=== PATIENT | female | born 1955 | race Caucasian/White ===

== ENCOUNTER 2021-04-26 16:40 | Outpatient (CLI) | payer OTHER, SELFPAY ==
--- NOTE | 2021-04-26 16:47 | RAD_ITS ---
STUDY: X-RAY CHEST REASON FOR EXAM: Female, 65 years old. Back pain, abnormal bone scan TECHNIQUE: PA and lateral views of the chest. COMPARISON: None. FINDINGS: The lungs are clear and expanded. There is no demonstrated pleural abnormality. Normal size heart. Normal mediastinum and tabby. Normal visualized pulmonary arteries. Normal visualized aortic arch and descending thoracic aorta. There are diffuse degenerative changes of the visualized thoracic spine. Normal visualized ribs, clavicles, and shoulders. There is no demonstrated abnormality of the visualized soft tissue structures of the upper abdomen. RAD/Chest PA and Lateral IMPRESSION: No acute pulmonary process Electronically Signed: Stef Carter MD at 17:04 EST ,
== END 2021-04-26 23:59 | disposition short-term general hospital (02) ==
LOC: RAD 16:43
PROVIDERS: PCP Nurse Practitioner Primary Care; Referring Provider Specialist; Visit Provider Specialist
DX: R94.8 Abnormal results of function studies of other organs and systems (principal)
CPT/HCPCS: 71046

== ENCOUNTER 2024-10-14 11:30 | Outpatient (RCR) | payer MEDICARE, OTHER, SELFPAY ==
--- NOTE | 2024-09-16 12:11 | HP.PTEVAL ---
Patient's Visit Information Visit Information Visit Information: DAMI LOMAX is a 68 year old F referred to Physical Therapy by SUNIL Mcknight with a diagnosis of R calf pain/strain of R calf. Date of Evaluation: 09/16/24 Physical Therapist: Elena Howe MPT Visit Plan Frequency: 2x /Week Duration: 6 Months Plan: 2X/ week for 6 weeks for R gastroc and HS foam rolling, stretching of R HS and gastroc with some MT to the same. Then progress to gastroc and HS strengthening with HEP HEP: supine green strap HS, long sitting HS, and towel gastroc stretch Subjective Subjective: Pt start with a R calf pain in morning (more like a cramp) and towards evening it shoots up her leg into her buttock. She has no N&T. She has no calf pain with walking. It does bother her to push the gas pedel. She has no trouble on steps unless she does too many of them. She has no night pain while laying down or sleeping. Pain R calf pain: Pain Intensity (Out of 10): 3 R buttock pain: Pain Intensity (Out of 10): 3 Objective Objective: Gait: Walks with decrease stance time on the R LE Heel and toe raises: increase pain on the R with heel raises. Pt has decreased ability to toe raise B but worse on the R with some increase R calf pain LE MMT: R hip ext 4-/5 (pain) and L 4/5 R knee flex 6.5 and L 10.7 Palpation: tender over R ischial tuberosity and R lateral calf Tight R HS and gastroc worse on the R compared to the L Slant Board stretch... pt really felt the stretch on the R Stairs: pt had a little weakness ascending the steps on the R Balance/Special Test Scores Lower Extremity Functional Score: 77 Goals Goal 1:: I HEP Goal Time Frame: 6-8 Weeks Goal 2:: Increase R HS and R gastroc flexibility with no pain Goal Time Frame: 6-8 Weeks Goal 3:: Pt to be able to sit at night without having R buttock and calf pain Goal Time Frame: 6-8 Weeks Goal 4:: Increase R LE strength (at the time of the eval: R hip ext 4-/5 (pain) and L 4/5 R knee flex 6.5 and L 10.7) Goal Time Frame: 6-8 Weeks Rehabilitation Potential Rehabilitation Potential: Good Anticipated Interventions Patient/Client Instruction: Educate patient on: Condition and Plan of Care For the Purpose of:: To decrease pain, To increase ROM, To improve nutrient delivery to tissue, To improve muscle performance and motor function, To improve ability to perform ADL's, To increase tolerance to activity/condition/position, To improve performance and independence with ADL's, To decrease level of supervision to perform tasks, To improve ability of physical actions for home/community/work/leisure, To improve gait and locomotor functions, To improve health of tissue, To decrease soft tissue restriction and To increase flexibility/ROM Therapeutic Exercise to Include: Strength training, Flexibilty training, Gait and locomotor training, Neuromotor development, Passive ROM and Active ROM For the Purpose of:: To decrease pain, To decrease swelling/inflammation, To increase ROM, To improve nutrient delivery to tissue, To improve muscle performance and motor function, To improve ability to perform ADL's, To improve gait and locomotor functions, To improve health of tissue, To decrease soft tissue restriction and To increase flexibility/ROM Manual Therapy Techniques to Include: Passive ROM and Soft tissue mobilization For the Purpose of:: To decrease pain, To decrease swelling/inflammation, To increase ROM, To improve nutrient delivery to tissue, To improve muscle performance and motor function, To improve ability to perform ADL's, To increase tolerance to activity/condition/position, To improve health of tissue, To decrease soft tissue restriction and To increase flexibility/ROM Cryotherapy (ice pack, ice massage): Yes Thermo therapy (hot pack): Yes For the Purpose of:: To decrease pain, To decrease swelling/inflammation, To increase ROM and To improve nutrient delivery to tissue Text: Thank you for the opportunity to evaluate your patient. For Medicare and Medicare HMO plans, please review the plan of care and approve it. It will need to be FAXED BACK to us at [phone] for Medicare purposes. For Medicare only, by signing this I certify the plan of care. Please let me know if there are questions or concerns regarding this plan of care. Physician Signature: Date:
--- NOTE | 2024-10-14 11:57 | HP.PTDCSUM ---
Discharge Summary D/C summary: It has been my pleasure to treat DAMI LOMAX referred by Melody Reece NP-C, with the diagnosis of R calf pain/strain of R calf for a total of 9 visit(s). Discharge Date: 10/14/24 Please see the following information for a summary of their discharge status. Subjective Subjective: Pt has no pain, no pain sitting at night. she has all her exercises to do from here on out. Pain R calf pain: Pain Intensity (Out of 10): 0 R buttock pain: Pain Intensity (Out of 10): 0 Overall Improvement % Improvement: 100 Objective Objective/Function: R knee flex 12.2# no pain Able to sit at night without pain Went through exercises and able to perform with good form Goals Goal 1:: I HEP Goal Progress: Goal Met Goal 2:: Increase R HS and R gastroc flexibility with no pain Goal Progress: Goal Met Goal 3:: Pt to be able to sit at night without having R buttock and calf pain Goal Progress: Goal Met Goal 4:: Increase R LE strength (at the time of the eval: R hip ext 4-/5 (pain) and L 4/5 R knee flex 6.5 and L 10.7) Goal Progress: Goal Met Plan Plan: DC PT to HEP D/C Information d/c sentence: If there are questions or concerns regarding this patient's physical therapy, please feel free to call me at [phone]. Thank you for the referral of this patient. Sincerely, Elena Howe, MPT Balance/Gait/Functional tests Balance/Special Test Scores Lower Extremity Functional Score: 80 Improvement % Improvement: 100
== END 2024-10-14 14:10 | disposition home or self-care (01) ==
LOC: PT 11:30
PROVIDERS: PCP Nurse Practitioner Primary Care; Referring Provider Nurse Practitioner Primary Care; Visit Provider Nurse Practitioner Primary Care
DX: S86.811D Strain of other muscle(s) and tendon(s) at lower leg level, right leg, subsequent encounter (principal); M79.661 Pain in right lower leg
CPT/HCPCS: 97110; 97140; 97161